=== PATIENT | female | born 1950 | race Caucasian/White ===

== ENCOUNTER 2023-07-20 11:53 | Day surgery (SDC) | payer MEDICARE, BC ==
[~2023-07-20] VITALS: Ht 170.2 cm; Wt 54.5 kg
[~2023-07-20 11:53] MED LIST: CALCIUM500 MG PO; DAILY VALUE1 EACH PO; FOSAMAX70 MG PO; VITAMIN D310 MC2 PO
[2023-07-20] MEDS ORDERED: KLOR-CON 1010 MEQ PO (12:31)
[2023-07-20 12:32] VITALS: BP 130/75
--- NOTE | 2023-07-20 14:24 | NUR ---
07/20/23 1424 Madelaine Nielson 1422-PATIENT ARRIVED TO PACU ON RA RR EVEN. PATIENT LAYING LEFT LATERAL REACTIVE TO VERBAL STIMULI REMAINS DROWSY DENIES PAIN OR NAUSEA. RA 100% RR EVEN. ABDOMEN SOFT IVF INFUSING.
[2023-07-20 15:25] VITALS: BP 142/69
--- NOTE | 2023-07-20 15:59 | NUR ---
LE 1555 PATIENT IV D/C'D WNL. PATIENT DRESSED SELF AND WAS WHEELED OUT OF FACILITY. GIVEN DISCHARGE INSTRUCTIONS. NO QUESTIONS OR FUTHER NEEDS.
--- NOTE | 2023-07-20 16:37 | NUR ---
1525: PATIENT BACK IN DAY SURGERY ROOM FROM PACU. DENIES PAIN. VS CHECKED. DISCHARGE INSTRUCTIONS GIVEN TO PATIENT AND . PATIENT REQUESTING MORE TIME TO REST. AT BEDSIDE. CALL LIGHT WITHIN REACH.
--- NOTE | 2023-07-23 15:37 | PATH ---
[facility] [address] [place], [place] [address] Signed SPECIMEN(S): A LEFT COLON BIOPSY AT 60 CM SPECIMEN(S): B LEFT COLON BIOPSY AT 40 CM SPECIMEN SOURCE: A. LEFT COLON BIOPSY AT 60 CM B. LEFT COLON BIOPSY AT 40 CM CLINICAL HISTORY: Positive Cologuard. FINAL PATHOLOGIC DIAGNOSIS: A. Left colon biopsy at 60 cm: - Hyperplastic polyp (multiple fragments). B. Left colon biopsy at 40 cm: - Tubular adenoma (one fragment). JVR:javier MICROSCOPIC EXAMINATION: Histologic sections of all submitted blocks are examined by light microscopy. These findings, together with the gross examination, support the pathologic diagnosis. GROSS DESCRIPTION: A. The specimen, labeled and designated "Fredo, left colon biopsy at 60 cm," is received in formalin and consists of nine alfredo soft tissue fragments, ranging from 0.1 to 0.3 cm. Entirely submitted in (A1). B. The specimen, labeled and designated "Fredo, left colon biopsy at 40 cm," is received in formalin and consists of eight fragmented pieces of alfredo soft tissue (0.1 to 0.4 cm in greatest dimension) and a fragmented polyp of alfredo soft tissue (1.3 x 1.0 x 0.4 cm). The resection margin of the polyp is inked blue, and the specimen is submitted entirely in cassette (B1). VB (under the direct supervision of a pathologist) The Gross Description was prepared using a voice recognition system. The report was reviewed for accuracy; however, sound-alike word errors, addition and/or deletions may occur. If there is any question about this report, please contact Client Services. PERFORMING LABORATORY: Technical component was performed by [facility], Wyatt Woody, PATIENT NAME: CIARA VIRAMONTES PATHOLOGY DATE OF : 46 REPORT #: [id number] PHYSICIAN: [facility] PCP: CATHIE ZARATE DO REPORT IS CONFIDENTIAL AND NOT TO BE RELEASED WITHOUT AUTHORIZATION [facility] [address], [place] [address] [place] [address] (CLIA# [id number]). Professional interpretation was performed by [facility] - [facility], [address] [place] [phone] (CLIA#: [id number]). Diagnostician: José Manuel Lee MD Pathologist Electronically Signed 07/23/2023 Copies: ~ PATIENT NAME: CIARA VIRAMONTES PATHOLOGY DATE OF : 46 REPORT #: [id number] PHYSICIAN: [facility] PCP: CATHIE ZARATE DO REPORT IS CONFIDENTIAL AND NOT TO BE RELEASED WITHOUT AUTHORIZATION
--- NOTE | 2023-07-25 11:30 | OR ---
[facility] [address] [place], [place] [address] Signed DATE OF OPERATION: 07/20/2023 SURGEON: Storm Belcher MD PREOPERATIVE DIAGNOSES: 1. Positive Cologuard test. 2. History of diminutive polyp colonoscopy 2011. POSTOPERATIVE DIAGNOSIS: Polyp at 60 cm and 40 cm (excised). PROCEDURES: Total colonoscopy to cecum with cold snare polypectomy x1 with dye injection and cold morcellation polypectomy x1. ANESTHESIA: Intravenous sedation; fentanyl 100 mcg and Versed 6 6 mg. INDICATION: This 72-year-old white woman is a patient of Dr. Zarate and underwent colonoscopy by nd in 2011, at which time she had a diminutive polyp. She has had no symptoms of bleeding, diarrhea, or constipation and has no family history of colon cancer. She underwent Cologuard test under the direction of Dr. Zarate, which was positive. She is admitted at this time to undergo colonoscopy on the basis of that for therapeutic intention. The risk of bleeding, infection, perforation, failure to identify polyp, and the possibility of a false-positive Cologuard test were all reviewed in detail. She understands and wished to proceed. FINDINGS: The prep was good. Complete colonoscopy was undertaken of the cecum. There were two polyps, one of them larger than the other. The smaller at 60 cm, excised with cold morcellation technique. The larger relatively flattest appearing polyp was excised with cold snare technique and the side injected with endoscopic tattoo for future reference. There were no other findings of concern. DESCRIPTION OF PROCEDURE: The patient was brought to the endoscopy suite and placed in the lateral decubitus position, given intravenous sedation to the point of slurred speech and nystagmus. Digital rectal examination was normal. Electronically Signed By: STORM BELCHER MD 07/25/23 1130 PATIENT NAME: CIARA VIRAMONTES OPERATIVE REPORT DATE OF : 46 REPORT #: [id number] PHYSICIAN: STORM BELCHER MD PCP: GIDEON ZARATE DO REPORT IS CONFIDENTIAL AND NOT TO BE RELEASED WITHOUT AUTHORIZATION [facility] [address] [place], [place] [address] Signed An Olympus video colonoscope was passed in the rectum and manipulated throughout the colon. A good prep was noted. The scope was ultimately advanced to the cecum. The ileocecal valve and appendiceal orifice were normal. The scope was withdrawn from that point and examination showed no sign of abnormality until the left colon at approximately 60 cm where a small sessile polyp was noted, this was excised with multiple bites of a cold morcellation device. Complete excision was noted. The scope was then withdrawn and at 40 cm, a flat slim but larger polyp was noted, this was excised with cold snare technique. Additional polypectomy was required with morcellation technique for complete resection. On the basis of its somewhat complex appearance, an injection was undertaken with spot endoscopic dye for future reference. The scope was further withdrawn. The remaining colon and rectum was normal. Scope was removed and the patient was taken to the recovery room in good condition. CONCLUDING DIAGNOSIS: Positive Cologuard test and two polyps excised. PLAN: Recommend repeat colonoscopy in three years, sooner if clinically indicated. She will return to the ongoing care of Dr. Zarate. Storm Belcher MD JM/MODL /[id number] cc: Gideon Zarate DO Copies: GIDEON ZARATE DO ~ Electronically Signed By: STORM BELCHER MD 07/25/23 1130 PATIENT NAME: CIARA VIRAMONTES OPERATIVE REPORT DATE OF : 46 REPORT #: [id number] PHYSICIAN: STORM BELCHER MD PCP: GIDEON ZARATE DO REPORT IS CONFIDENTIAL AND NOT TO BE RELEASED WITHOUT AUTHORIZATION
== END 2023-07-20 15:55 | disposition home or self-care (01) ==
LOC: OPS 11:53 → DS 11:53 → OPS 12:00
PROVIDERS: ATTEND Surgery
PROC: 3E0H8GC Introduction of Other Therapeutic Substance into Lower GI, Via Natural or Artificial Opening Endoscopic (ICD-10-PCS; 2023-07-20)
PROC: 0DBM8ZZ Excision of Descending Colon, Via Natural or Artificial Opening Endoscopic (ICD-10-PCS; principal; 2023-07-20 13:30)
DX: D12.4 Benign neoplasm of descending colon (principal); Z98.890 Other specified postprocedural states
CPT/HCPCS: 99153; G0500; J2250; J3010; J7121